=== PATIENT | female | born 1985 | race Caucasian/White ===

== ENCOUNTER 2016-12-11 19:12 | Emergency (ER) | payer SELFPAY ==
[~2016-12-11] VITALS: Ht 160 cm; Wt 111.0 kg
[~2016-12-11 19:12] MED LIST: BENZ100 PO; IBUP800 PO; ZITH250T PO
[2016-12-11 19:14] VITALS: BP 204/89; PULSE 59; RESP 16; TEMP 98.4; O2SAT 96
--- NOTE | 2016-12-11 19:58 | PD ---
Physical Exam Date Seen by Provider: Dec 11, 2016 Time Seen by Provider: 19:55 Narrative 31 YOWF C/O B FOOT AND ANKLE SWELLING SINCE SUNDAY. NO INJURY. NO CP MILD SOB WITH SMOKING. NO BCP H/O TUBAL VITALS NOTED. AWAITING BED PLACEMENT Data Data Last Documented VS Vital Signs Date Time Temp Pulse Resp B/P Pulse Ox O2 Delivery O2 Flow Rate FiO2 12/11/16 19:14 98.4 59 16 204/89 96 Room Air [facility] Medical Record Reviewed: Yes Supervised Visit with GARIMA: Yes Jeanmarie Gerard Dec 11, 2016 19:58
== END 2016-12-11 21:49 | disposition left against medical advice (07) ==
LOC: NED 19:13
DX: M79.89 Other specified soft tissue disorders (principal)
CPT/HCPCS: 99282

== ENCOUNTER 2017-06-16 13:30 | Emergency (ER) | payer MEDICAID ==
[~2017-06-16] VITALS: Ht 160 cm; Wt 110.0 kg
[2017-06-16 13:31] VITALS: BP 171/91; PULSE 57; RESP 15; TEMP 98.7; O2SAT 99
--- NOTE | 2017-06-16 15:03 | PD ---
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 She does not remember removing it. She did not see it all out. She has continued to have her normal menstrual cycle throughout the day and has a very padded in place. Denies abdominal pain. Denies fever or chills. No other symptoms to report. 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16) Immunizations Current: Yes Seizures: No Thyroid Disease: No Ulcer: No ?: Not LMP: CURRENTLY Tubal Ligation: Yes (10/02/12) Past Surgical History Cholecystectomy: Yes Tympanostomy Tube: Yes Other Surgery: No Social History Alcohol Use: Yes (1/2 daily) Tobacco Use: No Substance Use: No Allergies-Medications (Allergen,Severity, Reaction): Coded Allergies: Fish Containing Products (Unverified Allergy, Severe, Hives, 06/16/17) insect venom (Unverified Allergy, Severe, RXN REQUIRED HOSPITALIZATION, ) Reported Meds & Prescriptions Reported Meds & Active Scripts Active Zithromax Z-Lonny (Azithromycin) 250 Mg Tab 250 Mg PO DIRECTED 5 Days 500 MG (2 TABLETS) PO ON DAY 1, THEN 250 MG (1 TABLET) PO ON DAYS 2 TO 5. Motrin 800 Mg Tab (Ibuprofen) 800 Mg Tab 800 Mg PO Q8H PRN Tessalon Perles (Benzonatate) 100 Mg Cap 100 Mg PO TID PRN Review of Systems Except as stated in HPI: all other systems reviewed are Neg Physical Exam Narrative GENERAL: Obese female patient, in no acute distress SKIN: Focused skin assessment warm/dry. HEAD: Atraumatic. Normocephalic. EYES: Pupils equal and round. No scleral icterus. No injection or drainage. ENT: No nasal bleeding or discharge. Mucous membranes pink and moist. NECK: Trachea midline. No JVD. CARDIOVASCULAR: Regular rate and rhythm. No murmur appreciated. RESPIRATORY: No accessory muscle use. Clear to auscultation. Breath sounds equal bilaterally. GASTROINTESTINAL: Abdomen soft, non-tender, nondistended. Hepatic and splenic margins not palpable. GENITOURINARY: Normal external genitalia without lesions or erythema. Vaginal vault with blood or drainage. Cervical os is visualized with a bloody drainage. I am unable to visualize any foreign body . No cervical motion tenderness. Uterus nontender and nonenlarged. Bilateral adnexa nontender without masses. PSYCHIATRIC: Appropriate mood and affect; insight and judgment normal. Data Data Last Documented VS Vital Signs Date Time Temp Pulse Resp B/P (MAP) Pulse Ox O2 Delivery O2 Flow Rate FiO2 06/16/17 13:31 98.7 57 15 171/91 (117) 99 MDM Medical Decision Making Medical Screen Exam Complete: Yes Emergency Medical Condition: Yes Medical Record Reviewed: Yes Differential Diagnosis Vaginal foreign body versus menstruation versus normal examination Narrative Course 31 year-old female presents to emergency department for evaluation of a possible retained tampon. I'm unable to visualize a foreign body in the pelvic cavity. By this time a super absorbency tampon should definitely be visible. I have offered reassurance and instructed her to return immediately and odor or pain develops. She agrees to return immediately at the time. Diagnosis Primary Impression: Vaginal foreign object Qualified Codes: T19.2XXA - Foreign body in vulva and vagina, initial encounter Referrals: Transportation Inspector Primary Care Physician Patient Instructions: General Instructions, Vaginal Foreign Body (ED) Additional Instructions: Follow up with your primary care provider Seek gynecology evaluation Return with any acute worsening of symptoms Med/Other Pt SpecificInfo: No Change to Meds Disposition: 01 DISCHARGE HOME Condition: Stable Rosita Hernandez Jun 16, 2017 15:03
== END 2017-06-16 15:52 | disposition home or self-care (01) ==
LOC: NEPD 13:30
DX: T19.2XXA Foreign body in vulva and vagina, initial encounter (principal); W45.8XXA Other foreign body or object entering through skin, initial encounter
CPT/HCPCS: 99284